=== PATIENT | female | born 1965 | race Caucasian/White ===

== ENCOUNTER → 2022-12-19 09:25 | Outpatient (BNVA) | payer OTHER, SELFPAY | PROVIDERS: Family Provider Nurse Practitioner Family; PCP Registered Nurse; Visit Provider Registered Nurse | DX: E55.9 Vitamin D deficiency, unspecified (principal); G71.09 Other specified muscular dystrophies; R25.2 Cramp and spasm; E53.8 Deficiency of other specified B group vitamins | CPT/HCPCS: 80053; 82306; 82607; 84443; 85025 ==